=== PATIENT | female | born 1955 | race African-American/Black ===

== ENCOUNTER 2022-02-10 00:55 | Emergency (ER) | payer BC, MEDICAID ==
[~2022-02-10] VITALS: Ht 157.5 cm; Wt 63.2 kg
[2022-02-10] MEDS ORDERED: SODIUM CHLORIDE 0.9% 1,000 ML IV ONE (02:45)
[2022-02-10 04:49] LABS: BASOPHILS % 1.1 % (0.0-2.0); EOSINOPHILS % 0.4 % (0.0-5.0); HEMATOCRIT. 34.6 % (36.0-48.0); HEMOGLOBIN. 10.7 g/dL (12.0-16.0); LYMPHOCYTES % 20.2 % (20.0-50.0); MEAN CORPUSCULAR VOLUME 68.2 fL (81.0-99.0); MEAN PLATELET VOLUME 9.9 fl (7.4-10.4); MONOCYTES % 8.4 % (2.0-8.0); NEUTROPHILS % 69.9 % (40.0-76.0); PLATELET 240 x1000/uL (130-400); RED BLOOD CELL COUNT 5.08 mill/uL (4.2-5.4); RED CELL DISTRIBUTION WIDTH 17.5 % (11.6-14.6)
[2022-02-10 04:56] LABS: CHLORIDE 110 mEq/L (98-107)
[2022-02-10 05:04] LABS: PROTHROMBIN TIME 10.3 sec (9.6-11.0)
[2022-02-10 06:27] VITALS: BP 156/85
[2022-02-10 08:46] LABS: PLATELET ESTIMATE NORMAL
== END 2022-02-10 07:12 | disposition short-term general hospital (02) ==
LOC: ER 01:31
DX: K62.5 Hemorrhage of anus and rectum (principal); D50.9 Iron deficiency anemia, unspecified; F32.9 Major depressive disorder, single episode, unspecified; I10 Essential (primary) hypertension; F17.210 Nicotine dependence, cigarettes, uncomplicated; Z88.3 Allergy status to other anti-infective agents; Z98.890 Other specified postprocedural states
CPT/HCPCS: 36415; 71045; 80053; 83605; 83690; 85025; 85610; 93005; 96361; 96374; 96375; 99285; J7030

== ENCOUNTER 2025-05-11 16:28 | Emergency (ER) | payer OTHER, MEDICAID ==
[~2025-05-11] VITALS: Ht 165.1 cm; Wt 80.0 kg
[2025-05-11 16:30] VITALS: O2SAT 100
[2025-05-11 17:19] LABS: INR 1.0
[2025-05-11 17:21] LABS: BASOPHILS % 0.7 % (0.0-2.0); EOSINOPHILS % 0.8 % (0.0-5.0); LYMPHOCYTES % 21.5 % (20.0-50.0); MEAN PLATELET VOLUME 8.8 fl (7.4-10.4); MONOCYTES % 9.2 % (2.0-8.0); NEUTROPHILS % 67.8 % (40.0-76.0); PLATELET 255 x1000/uL (130-400); RED BLOOD CELL COUNT 3.03 mill/uL (4.2-5.4); RED CELL DISTRIBUTION WIDTH 27.9 % (11.6-14.6)
[2025-05-11 17:22] LABS: CREATININE 0.9 mg/dL (0.6-1.0)
[2025-05-11] MEDS: SODIUM CHLORIDE 0.9% 1,000 ML IV ONE ×2 (17:22→22:28)
[2025-05-11 17:23] LABS: TROPONIN I HIGH SENSITIVITY < 4 ng/L (3.0-34); UREA NITROGEN BLOOD 9 mg/dL (9-23)
[2025-05-11 17:24] LABS: ASPARTATE AMINOTRANSFERASE 19 IU/L (<34)
[2025-05-11 17:25] LABS: BILIRUBIN DIRECT < 0.1 mg/dL (<=3.0); BILIRUBIN TOTAL 0.2 mg/dL (0.1-1.0); PROTEIN TOTAL 6.0 g/dL (6.0-8.3)
[2025-05-11 17:27] LABS: HEMATOCRIT. 20.4 % (36.0-48.0); HEMOGLOBIN. 6.3 g/dL (12.0-16.0)
[2025-05-11 17:29] LABS: ADD RBC MORPHOLOGY YES
[2025-05-11 18:07] LABS: PLATELET ESTIMATE NORMAL
[2025-05-11 22:25] VITALS: BP 107/62; PULSE 88; RESP 15; TEMP 37.2; O2SAT 100
== END 2025-05-11 22:46 | disposition short-term general hospital (02) ==
LOC: ER 16:28 → CMPBEDREQ 05-12 08:55
DX: D64.9 Anemia, unspecified (principal); R07.9 Chest pain, unspecified; R42 Dizziness and giddiness; I10 Essential (primary) hypertension; Z88.1 Allergy status to other antibiotic agents
CPT/HCPCS: 99285; 96360; 71045; 96361; 80076; 80048; 83880; 83735; 85025; 85610; 86850; 86900; 86901; 86920; 84484; 36415; J7030; A4606; P9016

== ENCOUNTER 2025-05-24 09:08 | Emergency (ER) | payer OTHER, MEDICAID ==
[~2025-05-24] VITALS: Ht 157.5 cm; Wt 70.0 kg
[2025-05-24 09:09] VITALS: O2SAT 100
[2025-05-24 10:06] LABS: BASOPHILS % 0.8 % (0.0-2.0); EOSINOPHILS % 0.4 % (0.0-5.0); HEMATOCRIT. 24.1 % (36.0-48.0); HEMOGLOBIN. 7.1 g/dL (12.0-16.0); LYMPHOCYTES % 13.1 % (20.0-50.0); MEAN PLATELET VOLUME 9.1 fl (7.4-10.4); MONOCYTES % 9.0 % (2.0-8.0); NEUTROPHILS % 76.7 % (40.0-76.0); PLATELET 302 x1000/uL (130-400); RED BLOOD CELL COUNT 3.13 mill/uL (4.2-5.4); RED CELL DISTRIBUTION WIDTH 26.2 % (11.6-14.6)
[2025-05-24 10:10] LABS: ADD RBC MORPHOLOGY YES
[2025-05-24 10:27] LABS: CREATININE 0.8 mg/dL (0.6-1.0); UREA NITROGEN BLOOD < 5 mg/dL (9-23)
[2025-05-24 10:29] LABS: ASPARTATE AMINOTRANSFERASE 29 IU/L (<34); BILIRUBIN DIRECT 0.2 mg/dL (<=3.0); BILIRUBIN TOTAL 0.8 mg/dL (0.1-1.0); PROTEIN TOTAL 5.5 g/dL (6.0-8.3)
[2025-05-24 10:49] LABS: PLATELET ESTIMATE NORMAL
[2025-05-24 12:32] VITALS: BP 108/54; PULSE 98; RESP 18; TEMP 36.8; O2SAT 100
== END 2025-05-24 12:30 | disposition short-term general hospital (02) ==
LOC: ER 09:08 → CANBEDREQ 11:01 → ER 12:30
DX: K92.2 Gastrointestinal hemorrhage, unspecified (principal); K65.2 Spontaneous bacterial peritonitis; I10 Essential (primary) hypertension; E78.5 Hyperlipidemia, unspecified; F32.A Depression, unspecified; Z88.1 Allergy status to other antibiotic agents
CPT/HCPCS: 36415; 71045; 80048; 80076; 85025; 86850; 86900; 99285